=== PATIENT | female | born 1965 ===

== ENCOUNTER 2025-01-27 06:39 | Day surgery (SDC) | payer OTHER ==
[2025-01-27] MEDS ORDERED: CIPROFLOXACIN IN 5 % DEXTROSE 400 MG/200 ML PIGGYBAG IV ONE ×3 (07:50→09:08)
[2025-01-27] MEDS ORDERED: POVIDONE-IODINE 118 ML BOTT TOP ONE (11:45)
[2025-01-27] MEDS ORDERED: METHYLERGONOVINE MALEATE 0.2 MG/ML AMPUL IV STA (13:08)
[2025-01-27] MEDS ORDERED: ONDANSETRON HCL 2 MG/ML VIAL ONE (13:48)
== END 2025-01-27 17:40 | disposition home or self-care (01) ==
LOC: CIR.AMB 06:39
PROVIDERS: ATTEND Obstetrics & Gynecology
DX: D25.0 Submucous leiomyoma of uterus (principal); N95.0 Postmenopausal bleeding; Z88.0 Allergy status to penicillin